=== PATIENT | female | born 1960 | race Caucasian/White ===

== ENCOUNTER → 2019-03-02 13:08 | Outpatient (BNVA) | payer MEDICARE, MEDICAID, SELFPAY | PROVIDERS: Family Provider Family Medicine; PCP Family Medicine; Referring Provider Nurse Practitioner Family; Visit Provider Specialist | DX: G40.909 Epilepsy, unspecified, not intractable, without status epilepticus (principal) | CPT/HCPCS: 95816 ==

== ENCOUNTER 2019-03-06 12:32 | Outpatient (CLI) | payer MEDICARE, MEDICAID, SELFPAY ==
--- NOTE | 2019-03-06 12:42 | CT_ITS ---
WS: [id number] CT HEAD NONCONTRAST HISTORY: PAIN IN HEAD AND HEADACHE TECHNIQUE: Contiguous axial imaging performed through the brain in 2.5 mm imaging. Bone and soft tiss ue windows. All CT scans at [facility] use at least one of these dose optimization techniq ues: automated exposure control; mA and/or kV adjustment per patient size (includes targeted exams wh ere dose is matched to clinical indication); or iterative reconstruction. DLP: 925.91 mGycm COMPARISON: 08/26/2013 No acute intracranial hemorrhage, midline shift or mass effect. No atrophy or prior infarcts or herniation. Ventricles: Normal size with no hydrocephalus. Paranasal sinuses: As visualized are clear. Mastoid air cells: Well pneumatized. Calvarium and scalp: Skull is intact with no soft tissue edema or swelling. CT/CT head wo con* [id number] IMPRESSION: Negative head CT.
== END 2019-03-06 12:33 | disposition home or self-care (01) ==
PROVIDERS: Family Provider Family Medicine; PCP Family Medicine; Visit Provider Nurse Practitioner Family
DX: R51 Headache (principal)
CPT/HCPCS: 70450

== ENCOUNTER → 2019-03-25 13:23 | Outpatient (BNVA) | payer MEDICARE, MEDICAID, SELFPAY | PROVIDERS: Family Provider Family Medicine; PCP Family Medicine; Referring Provider Nurse Practitioner Family; Visit Provider Specialist | DX: M31.6 Other giant cell arteritis (principal); R51 Headache | CPT/HCPCS: 99204; 99214 ==

== ENCOUNTER 2019-04-09 07:55 | Day surgery (SDC) | payer MEDICARE, MEDICAID, SELFPAY ==
[2019-04-08 13:19] VITALS: BMI 26.3
[2019-04-09] VITALS (11 sets, daily range): BP systolic 117–143; BP diastolic 38–87; PULSE 58–85; RESP 12–22; TEMP 36.2–36.4; O2SAT 94–100
--- NOTE | 2019-04-09 08:31 | W.PM.OPSUD ---
Surgery/Procedure H&P Update DATE OF PROCEDURE: April 09, 2019 DATE H&P PERFORMED: 03/25/19 H&P UPDATE INFORMATION: I have reviewed H&P completed within last 30 days and No changes to prior documentation PREOP DIAGNOSIS: Temporal arteritis PLANNED PROCEDURE: Operation Date: 04/09/19 09:20 Proposed Procedures p Temporal Artery Biopsy 94138 M31.6(Not Applicable) - Gilbert Serrano MD
--- NOTE | 2019-04-09 08:42 | P.ANESASSM_ITS ---
Pre-Anesthetic Assessment Pre-Anesthetic Assessment: Height/Weight: Height 1.64 m Weight 70.76 kg Temp Pulse Resp BP Pulse Ox 97.5 F L 77 18 117/87 94 04/09/19 08:18 04/09/19 08:18 04/09/19 08:18 04/09/19 08:18 04/09/19 08:18 Preop Diagnosis: Temporal arteritis Proposed Procedure: Operation Date: 04/09/19 09:20 Proposed Procedures p Temporal Artery Biopsy 01631 M31.6(Not Applicable) - Gilbert Serrano MD Was Beta José taken within 24 hours: N/A Last intake: Intake Last Liquid Date 04/09/19 Last Liquid Time 22:00 Last Solid Date 04/08/19 Last Solid Time 17:00 Social: Social History: Tobacco Packs per day: 10 cigs a day Pack years: greater than 5 Exam: Pre-Anes Outpt Exam: alert, oriented x 3 and clear to auscultation bilaterally Airway: Submandibular: WNL Cervical ROM: WNL MP: 2 Pulmonary: Pulmonary: SOB (CPAP) CV/HEM: CV/HEM: Arrythmia : : None reported Hepatic: Hepatic: None reported GI: GI: GERD (controlled) Metabolic: Metabolic: Thyroid Musc/skel: Musc/skel: None reported Neuropsych: Neuropsych: TIA (tia this month) Anesthetic Plan: ASA status: 3 Anesthesia: Anesthesia Evaluation and General Risk of > 500 ml blood loss (7ml/kg in children): No PFSH Anesthesia PFSH: Medical History Temporal arteritis Social History Smoking and tobacco status: former smoker Quit status (tobacco): has quit using tobacco Year quit tobacco: 2013 Alcohol intake: current Alcohol intake frequency: few times a month Alcohol type: wine History of recent travel: Yes ([facility] 03/21/[facility]) Data Anesthesia Cardiac Studies: No Data to Display
[2019-04-09] MEDS: sodium chloride 0.9% 1,000 ML 30 ML IV (09:00)
[2019-04-09] MEDS: neomycin-poly-bacitracin oint 28 gm 1 APPLIC TOPICAL (10:15)
--- NOTE | 2019-04-09 10:21 | SUR.PHASEI ---
1019 PATIENT TO PACU AT THIS TIME. RR EVEN AND UNLABORED. PLACED ON NC AT 3L, SPO2 100%. NO DISTRESS. PATIENT NOTED TO BE SLEEPING.
[2019-04-09] MEDS: fentaNYL 50 mcg/mL INJ 2mL IVP (10:29)
--- NOTE | 2019-04-09 10:51 | SUR.PHASEI ---
1047 PATIENT TO OPS AT THIS TIME. PAIN 04/27. RR EVEN AND UNLABORED. INCISIONS TO SONALI TEMPORAL'S DRY AND INTACT. CHELI NOTED.
--- NOTE | 2019-05-04 08:25 | PM.OP ---
Operative Report Date of procedure: May 04, 2019 Pre-op Diagnosis: Temporal arteritis Post-op diagnosis: same Post-op Findings: pending Procedure Done: Bilateral temporal artery biopsy Specimens removed/disposition: Bilateral temporal arteries Anesthesia: General Complications: none Condition: stable Disposition: PACU Brief History: Mrs. Lindo is a 59-year-old female who presents for biopsy to evaluate for temporal arteritis Procedure: To the operating room and after satisfactory general endotracheal anesthesia the temples were prepped draped and injected. An ultrasound was used to identify the location of the arteries. An incision was created both on the right and on the left side dissection was carried down until the arteries were identified. A 1.5 cm segments were harvested for both right and left sides. The vessels were ligated with 0 silk. Wound was closed in layers interrupted fashion with 3-0 chromic and 5-0 fast-absorbing suture. The patient tolerated the procedure well and was allowed awaken and taken to the recovery room where she was observed. During observation postoperative care instructions and counseling including detailed written and verbal instructions were given to the patient. When she verbalized understanding of all instructions and when she met discharge criteria she was discharged in satisfactory and stable condition.
== END 2019-04-09 11:28 | disposition home or self-care (01) ==
PROVIDERS: Family Provider Family Medicine; PCP Family Medicine; Visit Provider Otolaryngology
PROC: (CPT 37609; principal; 2019-04-09 09:20)
DX: M31.6 Other giant cell arteritis (principal); K21.9 Gastro-esophageal reflux disease without esophagitis; Z87.891 Personal history of nicotine dependence; Z82.49 Family history of ischemic heart disease and other diseases of the circulatory system; Z82.3 Family history of stroke; Z83.3 Family history of diabetes mellitus
CPT/HCPCS: 37609; 12345; 88305; J1100; J2405; J2704; J2710; J3010; J3490; J7030

== ENCOUNTER → 2019-04-16 10:48 | Outpatient (BNVA) | payer MEDICARE, MEDICAID, SELFPAY | PROVIDERS: Family Provider Family Medicine; PCP Family Medicine; Visit Provider Otolaryngology | DX: Z48.89 Encounter for other specified surgical aftercare (principal); M31.6 Other giant cell arteritis; G47.33 Obstructive sleep apnea (adult) (pediatric) | CPT/HCPCS: 99024; 99214 ==

== ENCOUNTER → 2019-04-23 14:17 | Outpatient (BNVA) | payer MEDICARE, MEDICAID, SELFPAY | PROVIDERS: Family Provider Family Medicine; PCP Nurse Practitioner Family; Visit Provider Specialist | DX: G44.81 Hypnic headache (principal); G50.0 Trigeminal neuralgia; Z87.891 Personal history of nicotine dependence | CPT/HCPCS: 64450; 99214 ==

== ENCOUNTER → 2019-04-24 09:29 | Outpatient (BNVA) | payer MEDICARE, MEDICAID, SELFPAY | PROVIDERS: Family Provider Family Medicine; PCP Nurse Practitioner Family; Visit Provider Otolaryngology | DX: G47.33 Obstructive sleep apnea (adult) (pediatric) (principal) | CPT/HCPCS: 99213; 99214 ==

== ENCOUNTER 2019-05-12 20:00 | Outpatient (CLI) | payer MEDICARE, MEDICAID, SELFPAY | END 2019-05-12 20:01 | disposition home or self-care (01) | LOC: SLEEP 05-13 10:01 | PROVIDERS: Family Provider Family Medicine; PCP Nurse Practitioner Family; Visit Provider Otolaryngology | DX: G47.33 Obstructive sleep apnea (adult) (pediatric) (principal) | CPT/HCPCS: 95810 ==

== ENCOUNTER → 2019-06-08 09:29 | Outpatient (BNVA) | payer MEDICARE, MEDICAID, SELFPAY | PROVIDERS: Family Provider Family Medicine; PCP Nurse Practitioner Family; Visit Provider Specialist | DX: G43.909 Migraine, unspecified, not intractable, without status migrainosus (principal); G44.81 Hypnic headache; G50.0 Trigeminal neuralgia; G47.33 Obstructive sleep apnea (adult) (pediatric) | CPT/HCPCS: 99213; 99214 ==

== ENCOUNTER 2021-04-11 06:00 | Outpatient (RCR) | payer MEDICARE, MEDICAID, SELFPAY | END 2021-04-17 23:59 | disposition home or self-care (01) | LOC: SOT 06:00 | PROVIDERS: PCP Nurse Practitioner Family; Referring Provider Nurse Practitioner Family; Visit Provider Nurse Practitioner Family | DX: M25.512 Pain in left shoulder (principal); S62.102D Fracture of unspecified carpal bone, left wrist, subsequent encounter for fracture with routine healing | CPT/HCPCS: 97165 ==

== ENCOUNTER 2021-04-18 06:00 | Outpatient (RCR) | payer MEDICARE, MEDICAID, SELFPAY | END 2021-05-18 23:59 | disposition home or self-care (01) | LOC: SOT 06:00 | PROVIDERS: PCP Nurse Practitioner Family; Referring Provider Nurse Practitioner Family; Visit Provider Nurse Practitioner Family | DX: M25.512 Pain in left shoulder (principal); S62.102D Fracture of unspecified carpal bone, left wrist, subsequent encounter for fracture with routine healing; X58.XXXD Exposure to other specified factors, subsequent encounter | CPT/HCPCS: 97022; 97032; 97110; 97140 ==

== ENCOUNTER 2022-02-16 09:55 | Outpatient (CLI) | payer MEDICARE, MEDICAID, SELFPAY ==
--- NOTE | 2022-02-16 10:00 | US_ITS ---
WS: [id number] ULTRASOUND RENAL TECHNIQUE: Ultrasound examination of both kidneys. CLINICAL INFORMATION: hematuria COMPARISON: January 28, 2019 FINDINGS: RIGHT: Right kidney is normal in size and appearance. Echogenicity: Normal. Cortical thickness: 1.4 cm; Normal. Hydronephrosis: None. Perinephric fluid: None. Right kidney measures: 11.4 cm x 3.9 cm x 5.5 cm. LEFT: Previously described simple cyst LEFT kidney better visualized on the 2019 examination but appe ars stable measuring 2.2 x 2.5 cm Left kidney is normal in size and appearance. Echogenicity: Normal. Cortical thickness: 2.0 cm; Normal. Hydronephrosis: None. Perinephric fluid: None. Left kidney measures: 11.2 cm x 4.5 cm x 5.1 cm. Normal visualized aorta. US/US renal BI* [id number] IMPRESSION: 1. No hydronephrosis in either kidney. 2. Previously described simple cyst LEFT kidney better visualized on the 2019 examination but appears stable measuring 2.2 x 2.5 cm 3. Normal bladder.
== END 2022-02-16 09:56 | disposition home or self-care (01) ==
LOC: RAD 09:55
PROVIDERS: PCP Nurse Practitioner Family; Visit Provider Urology
DX: R31.29 Other microscopic hematuria (principal)
CPT/HCPCS: 52000; 76770; 81003; 88112

== ENCOUNTER 2022-06-23 08:11 | Outpatient (CLI) | payer MEDICARE, MEDICAID, SELFPAY ==
--- NOTE | 2022-06-23 08:24 | CT_ITS ---
WS: [id number] LDCT LUNG CANCER SCREENING HISTORY: LUNG SCREENING TECHNIQUE: Axial imaging performed from the apices to 1 cm below the costophrenic angles. Coronal and sagittal reformats are submitted with axial MIP series. All CT scans at [facility] use at least one of these dose optimization techniques: automated exposure control; mA and/or kV adjustment per patient size (includes targeted exams where dose is matched to clinical indication); or iterativ e reconstruction. DLP: 65.60 mGy.cm DIvol: Mean CTDIvol: 1.40 (mGy) COMPARISON: 02/15/2017 Diagnostic quality: Satisfactory Lungs: Chronic emphysema. There are a few scattered bilateral peripheral micronodules which are less than 3 mm. No mass or nodule otherwise. No pneumonia. No endobronchial lesions. Heart: Normal size heart with no pericardial effusion.. Other findings: Mild enlargement of the pulmonary artery. Small mediastinal and hilar lymph nodes sim ilar to 2017. Prior cholecystectomy. 1.3 cm LEFT adrenal adenoma. CT/CT lung screening [id number] IMPRESSION: LUNG-RADS: 1-Negative FOLLOW UP: 12 Month: Continue annual screening with LDCT OTHER FINDINGS (S MODIFIER): None.
== END 2022-06-23 08:12 | disposition home or self-care (01) ==
LOC: RAD 08:15
PROVIDERS: PCP Family Medicine; Visit Provider Family Medicine
DX: Z12.2 Encounter for screening for malignant neoplasm of respiratory organs (principal); Z87.891 Personal history of nicotine dependence
CPT/HCPCS: 71271

== ENCOUNTER 2024-09-21 08:33 | Outpatient (CLI) | payer MEDICARE, MEDICAID, SELFPAY ==
--- NOTE | 2024-09-21 08:40 | CT_ITS ---
WS: [id number] LDCT LUNG CANCER SCREENING HISTORY: HX OF TOBACCO USE TECHNIQUE: Axial imaging performed from the apices to 1 cm below the costophrenic angles. Coronal and sagittal reformats are submitted with axial MIP series. All CT scans at [facility] use at least one of these dose optimization techniques: automated exposure control; mA and/or kV adjustment per patient size (includes targeted exams where dose is matched to clinical indication); or iterative reconstruction. DLP: 69.41 mGy.cm DIvol: Mean CTDIvol: 1.40 (mGy) COMPARISON: 06/23/2022 Diagnostic quality: Satisfactory Lungs: There are a few very tiny scattered micronodules. There are 2 micronodules periphery RIGHT upper lobe and a single micronodule at the LEFT lung base. No mass. No endobronchial lesions. Mild pulmonary hyperexpansion. Heart: Normal size heart with no pericardial effusion.. Other findings: Mild atherosclerosis aorta. Small mediastinal and hilar lymph nodes. No change in these lymph nodes since 06/23/2022. 1.5 cm LEFT adrenal adenoma. Normal RIGHT adrenal gland. CT/CT lung screening [id number] IMPRESSION: LUNG-RADS: 2-Benign Appearance or Behavior FOLLOW UP: 12 Month: Continue annual screening with LDCT OTHER FINDINGS (S MODIFIER): None.
== END 2024-09-21 08:34 | disposition home or self-care (01) ==
LOC: RAD 08:34
PROVIDERS: PCP Family Medicine; Visit Provider Family Medicine
DX: Z12.2 Encounter for screening for malignant neoplasm of respiratory organs (principal); Z87.891 Personal history of nicotine dependence; R91.8 Other nonspecific abnormal finding of lung field; I70.0 Atherosclerosis of aorta; J98.4 Other disorders of lung; R59.0 Localized enlarged lymph nodes; D35.02 Benign neoplasm of left adrenal gland
CPT/HCPCS: 71271

== ENCOUNTER 2024-09-24 13:24 | Outpatient (CLI) | payer MEDICARE, MEDICAID, SELFPAY ==
--- NOTE | 2024-09-24 | ECG_ITS ---
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
[2024-09-24 13:34] VITALS: BMI 29.6
--- NOTE | 2024-09-24 13:35 | USCV_ITS ---
Angela Lindo Age: 64 Gender: F : 1960 Exam Date: 09/24/2024 13:52 Ordering Phys: Gilbert Chase MD Technologist: Exam Location: [facility] [place] Indication: chest pain Rhythm: Sinus Patient History: cp Cardiac Medications: Medications in past 24 hours: Contrast: Stress Results Protocol: Rolo Total dose(mL): Exercise Duration (min:sec): 7:45 METS: 10.2 Resting HR: 66 Resting BP: 130 / 80 Peak HR: 124 Peak BP: 193 / 92 Max Predicted HR: 156 79 % Max Predicted HR Target HR: 133 Double Product: 33123 Stress Summary: The patient's target heart rate was not achieved The patient's target heart rate was not achieved due to fatigue BP Response: Normal Reason for Termination: General/leg fatigue Cardiac Symptoms: None ECG Analysis Resting ECG: Please see separate report Stress ECG: Please see separate report Arrhythmia: Please see separate report MEASUREMENTS (Male/Female) Normal Values FINDINGS The baseline echocardiogram with normal LV size and ejection fraction of around 65%. Segmental wall motion analysis revealed no gross wall motion abnormalities. No pericardial effusion With the patient exercise, there was good augmentation of all the segments with no exercise-induced wall motion abnormalities CONCLUSIONS 1. Normal echocardiogram response to exercise 2. Low probability for coronary ischemia, based on the above findings The study quality is somewhat compromised because of the limited parasternal images Dr Rika Mullen MD FACC (Electronically Signed) Final Date: 27 September 2024 21:44 S
[2024-09-24 14:00] VITALS: BP 118/49; PULSE 78
== END 2024-09-24 13:25 | disposition home or self-care (01) ==
LOC: CDL 13:25
PROVIDERS: PCP Family Medicine; Visit Provider Family Medicine
DX: R07.9 Chest pain, unspecified (principal)
CPT/HCPCS: 93017; 93350

== ENCOUNTER 2024-10-29 13:15 | Outpatient (CLI) | payer MEDICARE, MEDICAID, SELFPAY ==
--- NOTE | 2024-10-29 | MM_ITS ---
WS: [id number] BILATERAL SCREENING DIGITAL TOMOSYNTHESIS MAMMOGRAM WITH CAD HISTORY: ANNUAL SCREENING COMPARISON: 06/27/2018, 02/15/2017 Bilateral CC and MLO views with tomosynthesis and synthetic mammography submitted. Computer aided detection analyzed. Breast composition: There are scattered areas of fibroglandular density. No suspicious masses, microcalcifications or architectural distortion. Benign scattered calcifications. MM/MM scr BI tomosynthesis [id number] IMPRESSION: BI-RADS: 2 - Benign. FOLLOW UP: 1 Year Follow-up
== END 2024-10-29 13:16 | disposition home or self-care (01) ==
LOC: RAD 13:15
PROVIDERS: PCP Family Medicine; Visit Provider Family Medicine
DX: Z12.31 Encounter for screening mammogram for malignant neoplasm of breast (principal)
CPT/HCPCS: 77063; 77067